=== PATIENT | female | born 1985 | race Caucasian/White ===

== ENCOUNTER 2018-10-13 06:05 | Day surgery (SDC) | payer OTHER ==
[~2018-10-13] VITALS: Ht 162.6 cm; Wt 81.6 kg
[2018-10-13] MEDS ORDERED: LR 1,000 ML IV SCH (08:04)
[2018-10-13] MEDS ORDERED: MEPERIDINE HCL/PF 25 MG/ML DISP.SYRIN IVP PRN (08:15)
[2018-10-13] MEDS ORDERED: MEPERIDINE HCL/PF 50 MG/ML AMP IVP PRN ×2 (08:15)
[2018-10-13] MEDS ORDERED: METOCLOPRAMIDE HCL 10 MG/2 ML VIAL IVP PRN (08:15)
[2018-10-13] MEDS ORDERED: MIDAZOLAM HCL 5 MG/ML VIAL (VERSED) IV ONE (08:45)
[2018-10-13] MEDS ORDERED: SEVOFLURANE 15 MIN GAS INH ONE (08:45)
[2018-10-13] MEDS ORDERED: NS 1000 ML IV.SOLN IV ONE (08:45)
[2018-10-13] MEDS ORDERED: LR 1,000 ML IV.SOLN IV ONE (08:45)
[2018-10-13] MEDS ORDERED: fentaNYL CITRATE/PF 100 MCG/2 ML AMP ONE (08:45)
[2018-10-13] MEDS ORDERED: ONDANSETRON HCL 4 MG/2 ML VIAL ONE (08:45)
[2018-10-13] MEDS ORDERED: PROPOFOL 200MG/ 20ML VIAL (DIPRIVAN) IV ONE (08:45)
[2018-10-13] MEDS ORDERED: HYDROcodone/ACETAMIN 5-325 MG TAB (NORCO/ VICODIN) PO PRN (09:30)
[2018-10-13] MEDS ORDERED: OXYCODONE/ACETAMINOPHEN 5-325 TABLET PO PRN (09:30)
[2018-10-13] MEDS ORDERED: ONDANSETRON HCL 4 MG/2 ML VIAL IVP PRN (09:30)
[2018-10-13 10:59] VITALS: BP_SYST 114
== END 2018-10-13 10:35 | disposition home or self-care (01) ==
LOC: SMU 06:05 → SDS 06:05
PROVIDERS: ATTEND Specialist
DX: N84.0 Polyp of corpus uteri (principal); Z98.890 Other specified postprocedural states; Z79.899 Other long term (current) drug therapy; Z68.31 Body mass index [BMI] 31.0-31.9, adult; E66.3 Overweight
CPT/HCPCS: 58563; 88305; J2250; J2405; J2704; J3010; J7030; J7120